=== PATIENT | male | born 1935 | race Caucasian/White ===

== ENCOUNTER 2020-09-18 20:57 | Inpatient (IN) | payer MEDICARE, OTHER ==
[~2020-09-18] VITALS: Ht 162.6 cm; Wt 82.1 kg
[2020-09-18] MEDS ORDERED: ONDANSETRON HCL/PF 4 MG/2 ML VIAL ONE (21:10)
[2020-09-18 21:27] LABS: BASOPHILS % (AUTO) 0.4 % (0.0-2.0); EOSINOPHILS % (AUTO) 0.3 % (0.0-6.0); HEMATOCRIT 41 % (39-51); HEMOGLOBIN 13.5 g/dL (13.5-17.5); LYMPHOCYTES # (AUTO) 0.2 K/uL (0.8-4.8); LYMPHOCYTES % (AUTO) 7.1 % (20.0-44.0); MEAN CORPUSCULAR HGB CONC 33 g/dl (31.0-36.0); MEAN CORPUSCULAR VOLUME 95 fL (80-96); MONOCYTES % (AUTO) 0.8 % (2.0-12.0); NEUTROPHILS # (AUTO) 2.5 K/uL (1.8-8.9); NEUTROPHILS % (AUTO) 91.4 % (43.0-81.0); PLATELET COUNT (AUTO) 206 K/uL (150-450); RED BLOOD CELL COUNT(AUTO) 4.25 MIL/uL (4.5-6.0); WHITE BLOOD COUNT (AUTO) 2.7 K/uL (4.3-11.0)
[2020-09-18] MEDS ORDERED: ONDANSETRON HCL/PF 4 MG/2 ML VIAL IVP ONE (21:30)
[2020-09-18 21:42] LABS: ALBUMIN 4.1 g/dL (3.4-5.0); BILIRUBIN,DIRECT 0.2 mg/dL (0.0-0.2); CALCIUM, SERUM 9.2 mg/dL (8.5-10.1); CARBON DIOXIDE 22 mmol/L (21-32); CHLORIDE 102 mmol/L (98-107); CREATININE 1.7 mg/dL (0.6-1.3); GLUCOSE 119 mg/dL (74-106); LIPASE 94 U/L (73-393); SODIUM SERUM 142 mmol/L (136-145); UREA NITROGEN, BLOOD 40 mg/dL (7-18)
--- NOTE | 2020-09-18 21:49 | NUR ---
F/C INSERTED Fr 16. DRAK YELLOW URINE, OUTPUT 500CC.
[2020-09-18 21:56] LABS: ALANINE AMINOTRANSFERASE 31 U/L (12-78); ALKALINE PHOSPHATASE 117 U/L (46-116); ASPARTATE AMINOTRANSFERASE 29 U/L (15-37); BILIRUBIN,TOTAL 0.7 mg/dL (0.2-1.0)
--- NOTE | 2020-09-18 22:04 | NUR ---
PATIENT TAKEN TO CT
--- NOTE | 2020-09-18 22:24 | NUR ---
COVID SWAB COLLECTED AND SENT TO LAB
[2020-09-18 23:06] LABS: BAND % (MANUAL) 12 % (0.0-5.0); BASOPHILS % (MANUAL) 0 % (0.0-2.0); EOSINOPHILS % (MANUAL) 0 % (0-4); LYMPHOCYTES % (MANUAL) 6 % (16-48); MONOCYTES % (MANUAL) 10 % (0-11.0); NEUTROPHILS % (MANUAL) 72 (42-76)
[2020-09-18 23:08] LABS: BILIRUBIN,URINE Negative (NEGATIVE); COLOR,URINE YELLOW (YELLOW); LEUKOCYTE ESTERASE ,URINE Small (NEGATIVE); NITRITE, URINE Negative (NEGATIVE); PH,URINE 5.5 (5.0-8.0); PROTEIN,URINE Negative (NEGATIVE); UGLUCOSE Negative (NEGATIVE); UROBILINOGEN,URINE 0.2 EU/dL (0.2)
[2020-09-18 23:09] LABS: BACTERIA,URINE 1+ /HPF (None Seen); SQUAMOUS EPITHELIAL CELL,UR Few /HPF (None Seen)
[2020-09-18] MEDS ORDERED: IV NS 0.9% 1,000 ML BAG IV ONE (23:30)
[2020-09-18] MEDS ORDERED: CEFTRIAXONE 1GM BAG (ER ONLY) 1 GM/50 ML PIGGYBACK IV ONE (23:30)
[2020-09-18] MEDS ORDERED: CEFTRIAXONE 1GM BAG (ER ONLY) 50 ML IV ONE (23:30)
[2020-09-19] MEDS ORDERED: ONDANSETRON HCL/PF 4 MG/2 ML VIAL IVP PRN
[2020-09-19] MEDS ORDERED: MAG HYDROX/AL HYDROX/SIMETH 30 ML UDC PO PRN
[2020-09-19] MEDS ORDERED: Z GUARD REMEDY 2 OZ OINT TP PRN
[2020-09-19] MEDS ORDERED: MAGNESIUM HYDROXIDE 30 ML UDC PO PRN
[2020-09-19] MEDS ORDERED: HYDROCODONE/APAP 5/325MG TABLET PO PRN
[2020-09-19] MEDS ORDERED: BISACODYL SUPP (10 MG) 10 MG/SUPP.RECT SUPP.RECT RC PRN (00:30)
--- NOTE | 2020-09-19 00:56 | NUR ---
REPORT GIVEN TO EZRA MILLER.
[2020-09-19 01:01] VITALS: BP 120/53
--- NOTE | 2020-09-19 01:07 | NUR ---
PATIENT TRANSFERRED UNDER ACLS.
--- NOTE | 2020-09-19 01:09 | NUR ---
newspaper photo editor Admitting Notes Patient arrived to the unit via gurney at approximately 0100 accompanied by Nurse Brito. Patient required 3 person assistance to walk from a gurney to his bed. Patient has an impaired gait. Patient was oriented to the staff and his room. Patient's alert and oriented x3. Patient's on room air with no respiratory distress noted. Patient's connected to a tele monitor with no cardiac distress noted. Patient has an IV access on his RAC gauge#20, which is intact and patient. Safety measures in place: Bed locked, bed alarm on, side rails upx3, and call light within reach. Will continue to monitor the patient.
[2020-09-19] MEDS: DOCUSATE SODIUM 250 MG CAPSULE PO SCH ×3 (01:24→17:00)
[2020-09-19 04:00] VITALS: BP 94/56
[2020-09-19 06:51] LABS: BASOPHILS % (AUTO) 0.1 % (0.0-2.0); HEMATOCRIT 35 % (39-51); HEMOGLOBIN 11.7 g/dL (13.5-17.5); LYMPHOCYTES # (AUTO) 0.2 K/uL (0.8-4.8); MEAN CORPUSCULAR HGB CONC 34 g/dl (31.0-36.0); MEAN CORPUSCULAR VOLUME 95 fL (80-96); MONOCYTES # (AUTO) 0.7 K/uL (0.1-1.30); MONOCYTES % (AUTO) 3.6 % (2.0-12.0); NEUTROPHILS # (AUTO) 17.3 K/uL (1.8-8.9); NEUTROPHILS % (AUTO) 95.3 % (43.0-81.0); PLATELET COUNT (AUTO) 128 K/uL (150-450); RED BLOOD CELL COUNT(AUTO) 3.63 MIL/uL (4.5-6.0); WHITE BLOOD COUNT (AUTO) 18.2 K/uL (4.3-11.0)
[2020-09-19] MEDS: IV NS 0.9% 1,000 ML IV PRN (07:14)
[2020-09-19 07:22] LABS: CALCIUM, SERUM 8.4 mg/dL (8.5-10.1); CARBON DIOXIDE 22 mmol/L (21-32); CHLORIDE 108 mmol/L (98-107); CREATININE 2.2 mg/dL (0.6-1.3); GLUCOSE 139 mg/dL (74-106); MAGNESIUM 2.1 mg/dL (1.8-2.4); PHOSPHORUS 3.3 mg/dL (2.5-4.9); POTASSIUM 4.1 mmol/L (3.5-5.1); SODIUM SERUM 142 mmol/L (136-145); UREA NITROGEN, BLOOD 52 mg/dL (7-18)
[2020-09-19 07:30] LABS: CHOLESTEROL 104 mg/dL (<200); HDL CHOLESTEROL 40 mg/dL (40-60); LDL 47 mg/dL (0-99); THYROID STIMULATING HORMONE 1.669 uIU/mL (0.358-3.74); TRIGLYCERIDES 76 mg/dL (30-150)
--- NOTE | 2020-09-19 07:50 | NUR ---
TELE/RN OPENING NOTES RECEIVED PATIENT IN BED, ALERT AND ORIENTED X1, ABLE TO MAKE NEEDS KNOWN. STABLE ON ROOM AIR. NO SOB, NO DISTRESS NOTED AT THIS TIME. ON TELEMONITOR WITH A READING OF SR 60. IV ACCESS ON RIGHT AC #20G IS INTACT AND PATENT ON SALINE LOCK. SAFETY PRECAUTIONS IN PLACED. BED LOCKED ON LOWEST POSITION, SIDE RAILS UPX2, CALL LIGHT WITHIN REACH. WILL CONTINUE TO MONITOR PATIENT.
[2020-09-19] MEDS: PANTOPRAZOLE 40 MG TABLET.DR PO SCH (08:29)
[2020-09-19] MEDS ORDERED: FEBU40TA3 PO (08:37)
[2020-09-19] MEDS ORDERED: PITA4TAB PO (08:37)
[2020-09-19] MEDS ORDERED: ISOS60TA72 PO (08:37)
[2020-09-19] MEDS ORDERED: TERA5CAP7 PO (08:37)
[2020-09-19] MEDS ORDERED: LINA290C PO (08:37)
[2020-09-19] MEDS ORDERED: SOLI10TA7 PO (08:37)
[2020-09-19] MEDS ORDERED: AZIL40TA PO (08:37)
[2020-09-19] MEDS: CEPHALEXIN MONOHYDRATE 500 MG CAPSULE PO SCH ×2 (10:02→17:57)
[2020-09-19] MEDS: TAMSULOSIN 0.4 MG CAP.SR.24H PO SCH (10:02)
[2020-09-19 11:27] VITALS: BP 109/61
[2020-09-19] MEDS ORDERED: CHOL200010 PO (13:12)
[2020-09-19] MEDS ORDERED: SOLI5TAB2 PO (13:12)
[2020-09-19] MEDS ORDERED: ASPI-1169 PO (13:12)
[2020-09-19] MEDS ORDERED: MAGN400T52 PO (13:12)
[2020-09-19 16:10] VITALS: BP 122/79
--- NOTE | 2020-09-19 18:42 | NUR ---
TELE/RN NOTES- IV ACCESS PATIENT ACCIDENTALLY PULLED OUT HIS IV ACCESS ON RIGHT AC WHEN PATIENT STOOD UP TO GO TO THE COMMODE. RN WRAPPED RIGHT AC WITH KERLIX AND SECURED WITH TAPE. WILL ATTEMPT TO ACCESS ANOTHER IV LINE.
--- NOTE | 2020-09-19 19:35 | NUR ---
RN NOTES RECEIVED PATIENT AWAKE ON HIS BED, A/OX 2, PORTUGUESE SPEAKING, SR WITH BBB ON TELE MONITOR HR-62, NOTICED HEMATURIA ON HIS F/C -MD IS AWARE, NO IV ACCESS, WILL TRY PUT A NEW ONE, CALL LIGHT WITHIN REACH, SIDERAILSUPX2, WILL CONTINUE TO MONITOR
--- NOTE | 2020-09-19 19:58 | NUR ---
TELE/RN CLOSING NOTES PATIENT IN BED, ALERT AND ORIENTED X1, ABLE TO MAKE NEEDS KNOWN. STABLE ON ROOM AIR. NO SOB, NO DISTRESS NOTED AT THIS TIME. ON TELEMONITOR WITH A READING OF SR 65 WITH BBB. IV ACCESS WAS PULLED OUT WHEN PATIENT WENT TO THE COMMODE. SAFETY PRECAUTIONS IN PLACED. BED LOCKED ON LOWEST POSITION, SIDE RAILS UPX2, CALL LIGHT WITHIN REACH. WILL ENDORSE TO THE NEXT SHIFT FOR KEYSHA.
[2020-09-19 20:00] VITALS: BP 98/59
[2020-09-19] MEDS: ACETAMINOPHEN 325 MG TABLET PO PRN (20:01)
--- NOTE | 2020-09-19 20:07 | NUR ---
RN NOTES COMPLAINED OF PAIN ON HIS ABDOMEN, PER PATIENT'S SON HE CAN ONLY HAVE TYLENOL, TYLENOL 650MG PO GIVEN ORDERED
[2020-09-19] MEDS ORDERED: MEROPENEM 500 MG in IV NS 0.9% 50 ML IV ONE (22:00)
--- NOTE | 2020-09-19 23:00 | NUR ---
RN NOTES WINSTON CHARGE NURSE CAME UP AND INSERTED A NEW IV ACCESS ON THE LEFT HAND GAUGE 22
[2020-09-19] MEDS ORDERED: MEROPENEM 500 MG VIAL IV ONE (23:10)
[2020-09-20] VITALS: BP 116/74
[2020-09-20 04:00] VITALS: BP 110/49
--- NOTE | 2020-09-20 06:00 | NUR ---
RN NOTES IRRIGATE PATIENT'S STEVENSON CATHETER NO CLOTS WAS REMOVED, PT DENIES PAIN, SYMPHYSIS PUBIS WAS SOFT TO TOUCH
--- NOTE | 2020-09-20 06:58 | NUR ---
RN NOTES SLEEPING BUT AROUSABLE, NOT IN DISTRESS, DENIES PAIN, MORNING CARE RENDERED, CALL LIGHT WITHIN REACH, SALOUPX2, PT. NEEDS ATTENDED
--- NOTE | 2020-09-20 07:46 | NUR ---
TELE/RN OPENING NOTES RECEIVED PATIENT IN BED, ALERT AND ORIENTED X2, ABLE TO MAKE NEEDS KNOWN. STABLE ON ROOM AIR. NO SOB, NO DISTRESS NOTED AT THIS TIME. ON TELEMONITOR WITH A READING OF SR WITH BBB. IV ACCESS ON LEFT HAND #22G IS INTACT AND PATENT WITH A RUNNING IV NS @75ML/HR. SAFETY PRECAUTIONS IN PLACED. BED LOCKED ON LOWEST POSITION, SIDE RAILS UPX2, CALL LIGHT WITHIN REACH. WILL CONTINUE TO MONITOR PATIENT.
[2020-09-20 08:00] VITALS: BP 93/54
[2020-09-20 08:20] LABS: BASOPHILS % (AUTO) 0.1 % (0.0-2.0); EOSINOPHILS % (AUTO) 0.1 % (0.0-6.0); HEMATOCRIT 32 % (39-51); HEMOGLOBIN 10.7 g/dL (13.5-17.5); LYMPHOCYTES # (AUTO) 0.8 K/uL (0.8-4.8); LYMPHOCYTES % (AUTO) 3.1 % (20.0-44.0); MEAN CORPUSCULAR HGB CONC 34 g/dl (31.0-36.0); MEAN CORPUSCULAR VOLUME 96 fL (80-96); MONOCYTES # (AUTO) 1.3 K/uL (0.1-1.30); MONOCYTES % (AUTO) 5.3 % (2.0-12.0); NEUTROPHILS # (AUTO) 22.6 K/uL (1.8-8.9); NEUTROPHILS % (AUTO) 91.4 % (43.0-81.0); PLATELET COUNT (AUTO) 122 K/uL (150-450); RED BLOOD CELL COUNT(AUTO) 3.33 MIL/uL (4.5-6.0); WHITE BLOOD COUNT (AUTO) 24.7 K/uL (4.3-11.0)
[2020-09-20] MEDS: DOCUSATE SODIUM 250 MG CAPSULE PO SCH ×2 (09:00→17:00)
[2020-09-20] MEDS: TAMSULOSIN 0.4 MG CAP.SR.24H PO SCH (09:22)
[2020-09-20] MEDS: PANTOPRAZOLE 40 MG TABLET.DR PO SCH (09:22)
[2020-09-20] MEDS: MEROPENEM 500 MG in IV NS 0.9% 50 ML IV SCH ×2 (10:03→20:50)
[2020-09-20 10:14] LABS: CREATINE KINASE, TOTAL 100 U/L (39-308)
[2020-09-20 10:35] LABS: ALANINE AMINOTRANSFERASE 22 U/L (12-78); ALBUMIN 2.6 g/dL (3.4-5.0); ALKALINE PHOSPHATASE 82 U/L (46-116); ASPARTATE AMINOTRANSFERASE 27 U/L (15-37); BILIRUBIN,TOTAL 0.5 mg/dL (0.2-1.0); CARBON DIOXIDE 23 mmol/L (21-32); CHLORIDE 106 mmol/L (98-107); CREATININE 2.1 mg/dL (0.6-1.3); GLUCOSE 121 mg/dL (74-106); MAGNESIUM 2.4 mg/dL (1.8-2.4); PHOSPHORUS 3.4 mg/dL (2.5-4.9); POTASSIUM 4.2 mmol/L (3.5-5.1); SODIUM SERUM 138 mmol/L (136-145); TOTAL PROTEIN, SERUM 5.8 g/dL (6.4-8.2); UREA NITROGEN, BLOOD 65 mg/dL (7-18)
--- NOTE | 2020-09-20 12:06 | NUR ---
TELE/RN NOTES PER DR. HIDALGO, HE WILL CONTACT A UROLOGIST TO INSERT A 3-WAY STEVENSON CATHETER FOR A CONTINUOUS BLADDER IRRIGATION. PER RN JUST NEEDS TO DO MANUAL IRRIGATION FOR NOW. CHARGE NURSE MADDIE NOTIFIED OF THE PLAN.
[2020-09-20] MEDS: ACETAMINOPHEN 325 MG TABLET PO PRN (14:15)
[2020-09-20 16:00] VITALS: BP 96/51
[2020-09-20] MEDS ORDERED: TRAMADOL HCL 50 MG TABLET PO PRN (17:30)
[2020-09-20] MEDS: IV NS 0.9% 1,000 ML IV PRN (19:08)
--- NOTE | 2020-09-20 19:39 | NUR ---
TELE/RN CLOSING NOTES PATIENT IN BED, ALERT AND ORIENTED X3, ABLE TO MAKE NEEDS KNOWN. STABLE ON ROOM AIR. NO SOB, NO DISTRESS NOTED AT THIS TIME. ON TELEMONITOR WITH A READING OF SR 70'S WITH BBB. IV ACCESS ON LEFT HAND #22G IS INTACT AND PATENT WITH A RUNNING IV NS @75ML/HR. SAFETY PRECAUTIONS IN PLACED. BED LOCKED ON LOWEST POSITION, SIDE RAILS UPX2, CALL LIGHT WITHIN REACH. WILL ENDORSE TO THE NEXT SHIFT FOR KEYSHA.
[2020-09-20 20:00] VITALS: BP 103/48
[2020-09-20 20:29] LABS: HEMOGLOBIN 10.9 g/dL (13.5-17.5)
[2020-09-21] VITALS: BP 106/49
[2020-09-21 04:00] VITALS: BP 114/61
--- NOTE | 2020-09-21 06:10 | NUR ---
LEAD BURNER APPRENTICE NOTES AWAKE & RESPONSIVE. NOT IN ANY DISTRESS. NO SOB NOTED. DENIES ANY PAIN OR DISCOMFORT AT THIS TIME. ON TELE SB @ 57 WITH IVF INFUSING WELL. AM CARE DONE. MONITORED ACCORDINGLY. CALL LIGHT WITHIN REACH. BED IN LOWEST POSITION. SR UP X 3 WITH BED ALARM ON FOR SAFETY. WILL ENDORSE TO NEXT SHIFT.
[2020-09-21 06:23] LABS: BASOPHILS % (AUTO) 0.1 % (0.0-2.0); EOSINOPHILS % (AUTO) 0.5 % (0.0-6.0); HEMATOCRIT 34 % (39-51); HEMOGLOBIN 11.4 g/dL (13.5-17.5); LYMPHOCYTES % (AUTO) 3.6 % (20.0-44.0); MEAN CORPUSCULAR HGB CONC 34 g/dl (31.0-36.0); MEAN CORPUSCULAR VOLUME 95 fL (80-96); MONOCYTES # (AUTO) 1.1 K/uL (0.1-1.30); NEUTROPHILS # (AUTO) 25.3 K/uL (1.8-8.9); NEUTROPHILS % (AUTO) 91.8 % (43.0-81.0); PLATELET COUNT (AUTO) 147 K/uL (150-450); RED BLOOD CELL COUNT(AUTO) 3.59 MIL/uL (4.5-6.0); WHITE BLOOD COUNT (AUTO) 27.5 K/uL (4.3-11.0)
[2020-09-21 07:07] LABS: CALCIUM, SERUM 8.4 mg/dL (8.5-10.1); CARBON DIOXIDE 22 mmol/L (21-32); CHLORIDE 106 mmol/L (98-107); CREATININE 2.1 mg/dL (0.6-1.3); GLUCOSE 114 mg/dL (74-106); MAGNESIUM 2.4 mg/dL (1.8-2.4); PHOSPHORUS 2.8 mg/dL (2.5-4.9); POTASSIUM 4.3 mmol/L (3.5-5.1); SODIUM SERUM 140 mmol/L (136-145); UREA NITROGEN, BLOOD 71 mg/dL (7-18)
--- NOTE | 2020-09-21 07:38 | NUR ---
TELE/RN OPENING NOTES RECEIVED PATIENT IN BED AWAKE ALERT AND ORIENTED X 3. PATIENT IN ON ROOM AIR SATURATING WELL. PATIENT IN NO APPARENT RESPIRATORY DISTRESS NOTED. NO COMPLAINED OF PAIN NOTED AT THIS TIME. TELE MONITOR READING SINUS RHYTHM 61 BPM WITH PVC. WILL CONTINUE TO MONITOR.
[2020-09-21] MEDS: PANTOPRAZOLE 40 MG TABLET.DR PO SCH (07:59)
[2020-09-21] MEDS: DOCUSATE SODIUM 250 MG CAPSULE PO SCH ×2 (08:41→17:21)
[2020-09-21] MEDS: TAMSULOSIN 0.4 MG CAP.SR.24H PO SCH (08:42)
[2020-09-21] MEDS: MEROPENEM 500 MG in IV NS 0.9% 50 ML IV SCH ×2 (08:46→21:49)
[2020-09-21] MEDS: IV NS 0.9% 1,000 ML IV PRN (08:46)
[2020-09-21] MEDS ORDERED: DOCUSATE SODIUM 100 MG CAPSULE PO SCH (13:00)
[2020-09-21] MEDS: POLYETHYLENE GLYCOL 3350 17 GM POWD.PACK PO SCH (13:08)
--- NOTE | 2020-09-21 14:54 | NUR ---
RN NOTES DR. PALMA ORDER DISCONTINUE COLACE 100MG BID, NOTED AND CARRIED OUT.
[2020-09-21 18:00] VITALS: BP 146/60
--- NOTE | 2020-09-21 18:19 | NUR ---
RN NOTES FEBUXOSTAT 40MG DAILY DR. MONTOYA (SON) WAS NOTIFIED TO PROVIDE THIS MEDICATION, PER PHARMACY THEY DIDN'T CARRY THIS MEDICATION. DR. MONTOYA (SON) WILL CHECK IF HIS FATHER STILL TAKING THIS MEDICATION.
--- NOTE | 2020-09-21 19:00 | NUR ---
ARMOR RECONNAISSANCE SPECIALIST OPENING NOTE PT AWAKE IN BED AT THIS TIME. AOX2-3 , [place] SPEAKING, DIFFICULTY TRYING TO MAKE NEEDS KNOWN. PT ON MATERIALS ASSISTANT SR@83. NO SOB NOTED. NO C/O PAIN AT THIS TIME, NO S/O ANY ACUTE DISTRESS NOTED. RESPIRATIONS EVEN AND UNLABORED, STABLE ON RA. IV ACCESS LH G#18 INTACT, PATENT, FLUSHING WELL. STEVENSON CATHETER WITH HEMATURIA NOTED. SAFETY PRECAUTIONS IN PLACE AND MAINTAINED AT ALL TIMES. BED IN LOWEST LOCKED POSITION, HOB ELEVATED, SIDE RAILS UP X2, CALL LIGHT AND TABLE WITHIN REACH. FAMILY AT BEDSIDE. FAMILY AT BEDSIDE. WILL CONTINUE TO MONITOR
--- NOTE | 2020-09-21 19:27 | NUR ---
TELE/RN CLOSING NOTES PATIENT ALERT AND ORIENTED X3. PATIENT IN ON ROOM AIR SATURATION 96%. PATIENT IN NO APPARENT RESPIRATORY DISTRESS NOTED. NO COMPLAINED OF PAIN NOTED AT THIS TIME. TELE MONITOR READING SINUS RHYTHM 89 BPM WITH BBB AND TRIGEMINY. IV ACCESS AT LEFT HAND #22 G WITH IV FLUID OF NS 1L AT 75 ML/HR ON AND INFUSING WELL. SEEN AND EXAMINED BY MD WITH ORDERS MADE AND CARRIED OUT. ALL DUE MEDICATIONS WAS GIVEN. SAFETY PRECAUTIONS WAS IN PLACED. SIDE RAILS UP X2. CALL LIGHT WITHIN REACH. WILL ENDORSED TO MIXING PLANT OPERATOR FOR KEYSHA.
[2020-09-21 20:00] VITALS: BP 144/76
[2020-09-21 20:57] LABS: HEMOGLOBIN 10.9 g/dL (13.5-17.5)
[2020-09-22] VITALS: BP 131/61
[2020-09-22 04:00] VITALS: BP 131/50
--- NOTE | 2020-09-22 06:00 | NUR ---
PLANT SECURITY GUARD CLOSING NOTE PT IS IN BED WITH EYES CLOSED, EASY TO AROUSE. PT IS STABLE ON RA, NO SOB NOTED. NO S/S OF RESPIRATORY DISTRESS. PT IS BED REST. IV ACCESS IS INTACT, PATENT, AND FLUSHING WELL. STEVENSON CATHETER CARE PERFORMED. ALL NEEDS HAVE BEEN MET. ALL CARE, NEEDS, MEDICATIONS, AND TREATMENT ADMINISTERED ANTICIPATED PER ORDER. ENCOURAGED PT TO REPOSITION PT Q2H AND PRN. SAFETY, SEIZURE, AND ASPIRATION PRECAUTIONS MAINTAINED AT ALL TIMES. BED IN LOWEST LOCKED POSITION, HOB ELEVATED, SIDE RAILS UPX2. CALL LIGHT AND TABLE WITHIN REACH. WILL ENDORSE TO ONCOMING NURSE FOR KEYSHA.
[2020-09-22 06:28] LABS: BASOPHILS % (AUTO) 0.1 % (0.0-2.0); EOSINOPHILS % (AUTO) 0.8 % (0.0-6.0); HEMATOCRIT 32 % (39-51); HEMOGLOBIN 10.6 g/dL (13.5-17.5); LYMPHOCYTES # (AUTO) 1.2 K/uL (0.8-4.8); LYMPHOCYTES % (AUTO) 7.9 % (20.0-44.0); MEAN CORPUSCULAR HGB CONC 33 g/dl (31.0-36.0); MEAN CORPUSCULAR VOLUME 95 fL (80-96); MONOCYTES # (AUTO) 0.8 K/uL (0.1-1.30); NEUTROPHILS # (AUTO) 13.3 K/uL (1.8-8.9); NEUTROPHILS % (AUTO) 86.2 % (43.0-81.0); PLATELET COUNT (AUTO) 155 K/uL (150-450); RED BLOOD CELL COUNT(AUTO) 3.36 MIL/uL (4.5-6.0); WHITE BLOOD COUNT (AUTO) 15.4 K/uL (4.3-11.0)
[2020-09-22 06:47] LABS: CALCIUM, SERUM 8.4 mg/dL (8.5-10.1); CARBON DIOXIDE 26 mmol/L (21-32); CHLORIDE 107 mmol/L (98-107); GLUCOSE 103 mg/dL (74-106); POTASSIUM 4.1 mmol/L (3.5-5.1); SODIUM SERUM 139 mmol/L (136-145); UREA NITROGEN, BLOOD 71 mg/dL (7-18)
--- NOTE | 2020-09-22 07:55 | NUR ---
DREDGE MECHANIC OPENING NOTE PATIENT IS IN BED RESTING, PATIENT IS IN NO ACUTE DISTRESS. PATIENT IS ON TELE MONITOR READING SB 50s WITH PVCs. SAFETY PRECAUTIONS ARE ON, BED IS LOCKED IN THE LOWEST POSITION WITH SIDE RAILS UP, CALL LIGHT WITHIN REACH. WILL CONTINUE TO MONITOR CLOSELY.
[2020-09-22 08:07] LABS: *SPE ALBUMIN 2.7 g/dL (2.9-4.4); *SPE ALPHA-1-GLOBULIN 0.4 g/dL (0.0-0.4); *SPE ALPHA-2-GLOBULIN 0.8 g/dL (0.4-1.0); *SPE BETA GLOBULIN 0.6 g/dL (0.7-1.3); *SPE GLOBULIN, TOTAL 2.6 g/dL (2.2-3.9); *SPE M-SPIKE 0.2 g/dL (Not Observed); *SPEGAMMA GLOBULIN 0.8 g/dL (0.4-1.8)
[2020-09-22] MEDS: POLYETHYLENE GLYCOL 3350 17 GM POWD.PACK PO SCH (09:00)
[2020-09-22] MEDS ORDERED: LOSARTAN POTASSIUM 50 MG TABLET PO SCH (09:00)
[2020-09-22] MEDS ORDERED: Medication Not On Formulary EA (Febuxostat 40 MG) PO SCH (09:00)
[2020-09-22] MEDS ORDERED: Medication Not On Formulary EA (Magnesium Oxide 400 MG) PO SCH (09:00)
[2020-09-22] MEDS ORDERED: ISOSORBIDE MONONITRATE (30MG) 30 MG TAB.SR.24H PO SCH (09:00)
[2020-09-22] MEDS: MEROPENEM 500 MG in IV NS 0.9% 50 ML IV SCH (09:25)
[2020-09-22] MEDS: ATORVASTATIN 10 MG TABLET PO SCH (09:28)
[2020-09-22] MEDS: TERAZOSIN HCL 5 MG CAPSULE PO SCH (09:28)
[2020-09-22] MEDS: DOCUSATE SODIUM 250 MG CAPSULE PO SCH ×2 (09:28→17:44)
[2020-09-22] MEDS: CHOLECALCIFEROL 1,000 UNIT TABLET (VIT D3) PO SCH (09:29)
[2020-09-22] MEDS: ASPIRIN 81 MG TAB.CHEW PO SCH (09:29)
[2020-09-22] MEDS: OXYBUTYNIN CHLORIDE 5 MG TABLET PO SCH ×2 (09:29→17:44)
[2020-09-22] MEDS: PANTOPRAZOLE 40 MG TABLET.DR PO SCH (09:29)
[2020-09-22] MEDS: TAMSULOSIN 0.4 MG CAP.SR.24H PO SCH (09:29)
--- NOTE | 2020-09-22 09:30 | NUR ---
FITNESS INSTRUCTOR NOTE PATIENT HAD A LOOSE LIQUID STOOL, WITHHOLDING MIRALAX AT THIS TIME. PATIENT MOVED OUT OF BED AND PULLED ON THE STEVENSON CATHETER, RESULTING IN BLOODY URINE AND BLEEDING FROM THE URETHRA
--- NOTE | 2020-09-22 11:15 | NUR ---
WOUND CARE CONSULT: PT PRESENTS WITH LESION/WOUND TO LEFT THIGH, PRESENT ON ADMISSION, UNKNOWN ETIOLOGY. RECOMMEND SURGICAL CONSULT. DR MONICA MCDANIEL NOTIFIED OF CONSULT REQUEST. PT STATES HAS HAD THIS WOUND/LESION FOR ONE MONTH. RECOMMENDATIONS MADE FOR SKIN PROTECTION. DISCUSSED WITH NURSING STAFF. IN AGREEMENT WITH PLAN OF CARE. Addendum: 09/22/20 at 1117 by RAMONA DUNCAN WNDNU Amended: Links added.
[2020-09-22] MEDS: CEFTRIAXONE 1 G in IV D5W 50 ML IV SCH (12:11)
--- NOTE | 2020-09-22 18:48 | NUR ---
COUNTY EXTENSION AGENT CLOSING NOTE PATIENT IS IN BED RESTING, PATIENT IS IN NO ACUTE DISTRESS. PATIENT IS ON TELE MONITOR READING SB 50s WITH PVCs. SAFETY PRECAUTIONS ARE ON, BED IS LOCKED IN THE LOWEST POSITION WITH SIDE RAILS UP, CALL LIGHT WITHIN REACH. ENDORSE PATIENT TO SENIOR INTERACTIVE DEVELOPER NURSE FOR KEYSHA.
--- NOTE | 2020-09-22 19:57 | NUR ---
RESOURCE RECOVERY SPECIALIST OPENING NOTE RECEIVED PT AWAKE IN BED. A/O X3, SERBIAN-SPEAKING. PT IS STABLE ON ROOM AIR. NO SOB OR S/S OF RESPIRATORY DISTRESS NOTED. PT IS ON EXTERNAL MORTICIAN HELPER READING SB AT 54 BPM WITH PVCs. PT HAS NO C/O PAIN OR DISCOMFORT AT THIS TIME. IV ACCESS IN LEFT HAND #22 AND CHEKO MIDLINE, INTACT AND PATENT. STEVENSON CATH IN PLACE DRAINING GUIDO-COLORED URINE. SAFETY MEASURES MAINTAINED. BED IN LOWEST LOCKED POSITION, HOB ELEVATED, SIDE RAILS UP X2. CALL LIGHT AND TABLE WITHIN REACH. WILL CONTINUE WITH PLAN OF CARE.
[2020-09-22 20:00] VITALS: BP 131/64
[2020-09-23] VITALS: BP_SYST 122
[2020-09-23 04:00] VITALS: BP 146/44
--- NOTE | 2020-09-23 06:53 | NUR ---
SMASH PIECER CLOSING NOTE PT IS AWAKE IN BED. A/O X3, CONGOLESE-SPEAKING. PT IS STABLE ON ROOM AIR. NO SOB OR S/S OF RESPIRATORY DISTRESS NOTED. PT IS ON EXTERNAL PERFORATOR READING SB AT 63 BPM WITH PVCs. PT HAS NO C/O PAIN OR DISCOMFORT AT THIS TIME. IV ACCESS IS INTACT, PATENT, AND FLUSHING WELL. STEVENSON CATH IN PLACE DRAINING GUIDO-COLORED URINE WITH CLOTS. ALL NEEDS HAVE BEEN MET. SAFETY PRECAUTIONS MAINTAINED AT ALL TIMES. BED IN LOWEST LOCKED POSITION, HOB ELEVATED, SIDE RAILS UP X2. CALL LIGHT AND TABLE WITHIN REACH. WILL ENDORSE TO ONCOMING NURSE FOR KEYSHA.
[2020-09-23] MEDS: PANTOPRAZOLE 40 MG TABLET.DR PO SCH (07:30)
[2020-09-23 08:00] VITALS: BP 147/88
[2020-09-23] MEDS: TERAZOSIN HCL 5 MG CAPSULE PO SCH (09:00)
[2020-09-23] MEDS: TAMSULOSIN 0.4 MG CAP.SR.24H PO SCH (09:00)
[2020-09-23] MEDS: POLYETHYLENE GLYCOL 3350 17 GM POWD.PACK PO SCH (09:00)
[2020-09-23] MEDS: OXYBUTYNIN CHLORIDE 5 MG TABLET PO SCH (09:00)
[2020-09-23] MEDS: ATORVASTATIN 10 MG TABLET PO SCH (09:00)
[2020-09-23] MEDS: DOCUSATE SODIUM 250 MG CAPSULE PO SCH (09:00)
[2020-09-23] MEDS: ASPIRIN 81 MG TAB.CHEW PO SCH (09:00)
[2020-09-23] MEDS: CHOLECALCIFEROL 1,000 UNIT TABLET (VIT D3) PO SCH (09:00)
[2020-09-23] MEDS: CEFTRIAXONE 1 G in IV D5W 50 ML IV SCH (11:39)
--- NOTE | 2020-09-25 07:10 | NUR ---
MAINTENANCE SUPERVISOR OPENING NOTE RECEIVED PATIENT ON BED, ALERT AND ORIENTED X 4 SURINAMESE-SPEAKING ONLY. ABLE TO MAKE NEEDS KNOWN. PATIENT ON ROOM AIR WITH EQUAL AND UNLABORED BREATHING. WITH NO SIGNS OF RESPIRATORY DISTRESS. WITH LEFT UPPER ARM MIDLINE IV ACCESS ON SALINE LOCK, PATENT AND INTACT. WITH STEVENSON CATHETER TO URINE BAG WITH URINE WITH YELLOWISH OUTPUT. MAINTAINED ON MODERATE TO HIGH BACK REST. PER DITCHING MACHINE OPERATOR, PATIENT WAS ANXIOUS OF GOING HOME. CALL LIGHT WITHIN REACH AT ALL TIMES. SAFETY PRECAUTIONS MAINTAINED WITH BED LOCKED AND AT LOWEST POSITION. WILL CONTINUE TO MONITOR.
--- NOTE | 2020-09-25 09:45 | NUR ---
COMPUTER TESTER NOTE PATIENT REFUSED MEDICATIONS SAYING HE WILL BE GOING HOME. EXPLAINED REPERCUSSIONS OF ACTION AND IMPORTANCE OF MEDICATIONS. PATIENT WAS VERY DISMISSIVE AND SAID THAT WE JUST HAVE TO WAIT FOR HIS SON PUSHPA. I TRIED TO CALL HIS SON PUSHPA BUT WAS NOT ANSWERING AND VOICEMAIL IS FULL. MD NOTIFIED OF PATIENT'S REFUSAL INCLUDING VS CHECK. WILL CONTINUE TO MONITOR PATIENT.
--- NOTE | 2020-09-25 11:30 | NUR ---
HEALTH PHYSICIST NOTE PATIENT SEEN BY DR. OWENS WITH ERROL BARROW AT BEDSIDE WITH ORDER FOR DISCHARGE. 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 WILL GIVE IV ATB BEFORE DISCHARGE. PATIENT REFUSED BODY CHECK DESPITE EXPLANATIONS BUT SON SIGNED FOR ALL THE PAPER WORKS AND ATTACHED TO CHART. WILL CONTINUE TO MONITOR PATIENT.
--- NOTE | 2020-09-25 12:35 | NUR ---
INSPECTOR AND HAND PACKAGER NOTE PATIENT DISCHARGED WITH STEVENSON CATHETER ORDERED IN STABLE CONDITION. MIDLINE REMOVED AND COVERED WITH DRY DRESSING WITH NO SIGNS OF BLEEDING. PROCEDURE TOLERATED WELL. STILL REFUSED BODY CHECK. PATIENT ACCOMPANIED TO THE LOBBY BY FIELDWORK COORDINATOR ON A WHEELCHAIR, IN STABLE CONDITION.
== END 2020-09-23 12:30 | disposition home health service (06) | DRG 871 ==
LOC: ER 20:57 → TELE 09-19 00:43
PROVIDERS: ADMIT Registered Nurse; ATTEND Nurse Practitioner Acute Care
PROC: 05H633Z Insertion of Infusion Device into Left Subclavian Vein, Percutaneous Approach (ICD-10-PCS; principal; 2020-09-19)
PROC: B547ZZA Ultrasonography of Left Subclavian Vein, Guidance (ICD-10-PCS; 2020-09-19)
DX: A41.9 Sepsis, unspecified organism (principal); N17.0 Acute kidney failure with tubular necrosis; G92 Toxic encephalopathy; E87.2 Acidosis; Z20.822 Contact with and (suspected) exposure to COVID-19; N18.9 Chronic kidney disease, unspecified; D63.8 Anemia in other chronic diseases classified elsewhere; B96.20 Unspecified Escherichia coli [E. coli] as the cause of diseases classified elsewhere; D69.6 Thrombocytopenia, unspecified; F03.90 Unspecified dementia, unspecified severity, without behavioral disturbance, psychotic disturbance, mood disturbance, and anxiety; K59.00 Constipation, unspecified; N30.21 Other chronic cystitis with hematuria; R65.20 Severe sepsis without septic shock; N28.1 Cyst of kidney, acquired; N40.1 Benign prostatic hyperplasia with lower urinary tract symptoms; L98.8 Other specified disorders of the skin and subcutaneous tissue
CPT/HCPCS: 36415; 71045-TC; 74018; 76770-TC; 80048-TC; 80053-TC; 80061-TC; 80076-TC; 81001; 82140-TC; 82550-TC; 83605-TC; 83690-TC; 83735-TC; 83970; 84100-TC; 84155; 84165; 84443-TC; 84484-TC; 85025-TC; 85027-TC; 87040-TC; 87081-TC; 87086-TC; 87186-TC; 97116-TC; 97530-TC; A4217; C9803; G0378; J0696; J2185; J2405; J7030; J7060

== ENCOUNTER 2024-05-28 03:40 | Inpatient (IN) | payer MEDICARE, OTHER ==
[~2024-05-28] VITALS: Ht 165.1 cm; Wt 65.8 kg
[~2024-05-28 03:40] MED LIST: ASPI-1169 PO; AZIL40TA PO; CHOL200010 PO; FEBU40TA3 PO; ISOS60TA72 PO; MAGN400T52 PO; PITA4TAB PO; SOLI5TAB2 PO; TERA5CAP7 PO
[2024-05-28] MEDS ORDERED: METO25TA4 PO (04:40)
[2024-05-28] MEDS ORDERED: FERR325T28 PO (04:40)
[2024-05-28] MEDS ORDERED: PANT40TA49 PO (04:40)
[2024-05-28] MEDS ORDERED: FURO20TA4 PO (04:40)
[2024-05-28] MEDS ORDERED: SACU1TAB7 PO (04:40)
[2024-05-28 04:50] LABS: BASOPHILS # (AUTO) 0.1 K/uL (0.0-0.2); BASOPHILS % (AUTO) 0.6 % (0.0-2.0); EOSINOPHILS # (AUTO) 0.2 K/uL (0.0-0.7); HEMATOCRIT 35 % (39-51); HEMOGLOBIN 11.6 g/dL (13.5-17.5); LYMPHOCYTES # (AUTO) 1.9 K/uL (0.8-4.8); MEAN CORPUSCULAR HEMOGLOBIN 29 PG (26.0-33.0); MEAN CORPUSCULAR HGB CONC 33 g/dl (31.0-36.0); MEAN CORPUSCULAR VOLUME 89 fL (80-96); MONOCYTES # (AUTO) 1.3 K/uL (0.1-1.30); MONOCYTES % (AUTO) 11.1 % (2.0-12.0); NEUTROPHILS # (AUTO) 8.5 K/uL (1.8-8.9); NEUTROPHILS % (AUTO) 70.3 % (43.0-81.0); PLATELET COUNT (AUTO) 459 K/uL (150-450); RED BLOOD CELL COUNT(AUTO) 3.99 MIL/uL (4.5-6.0); RED CELL DISTRIBUTION WIDTH 16.3 % (11.5-15.0); WHITE BLOOD COUNT (AUTO) 12.1 K/uL (4.3-11.0)
[2024-05-28 05:12] LABS: CALCIUM, SERUM 8.5 mg/dL (8.5-10.1); CARBON DIOXIDE 25 mmol/L (21-32); CHLORIDE 103 mmol/L (98-107); GLUCOSE 107 mg/dL (74-106); POTASSIUM 4.6 mmol/L (3.5-5.1); SODIUM SERUM 137 mmol/L (136-145); UREA NITROGEN, BLOOD 19 mg/dL (7-18)
[2024-05-28 05:17] LABS: ALANINE AMINOTRANSFERASE 70 U/L (12-78); ALBUMIN 1.8 g/dL (3.4-5.0); ALKALINE PHOSPHATASE 93 U/L (46-116); ASPARTATE AMINOTRANSFERASE 27 U/L (15-37); BILIRUBIN,DIRECT 0.1 mg/dL (0.0-0.2); BILIRUBIN,TOTAL 0.6 mg/dL (0.2-1.0); TOTAL PROTEIN, SERUM 6.1 g/dL (6.4-8.2)
[2024-05-28 05:24] LABS: APPEARANCE,URINE CLEAR (CLEAR); BILIRUBIN,URINE NEGATIVE (NEGATIVE); COLOR,URINE YELLOW (YELLOW); KETONES,URINE NEGATIVE (NEGATIVE); LEUKOCYTE ESTERASE ,URINE 2+ (NEGATIVE); NITRITE, URINE NEGATIVE (NEGATIVE); PROTEIN,URINE NEGATIVE (NEGATIVE); UGLUCOSE NEGATIVE (NEGATIVE)
[2024-05-28 05:25] LABS: INR 1.08 (0.91-1.10); PARTIAL THROMBOPLASTIN TIME 37.4 SEC (24.3-34.3); PROTHROMBIN TIME 11.4 SECS (9.2-11.1)
[2024-05-28] MEDS ORDERED: CEFTRIAXONE 1GM BAG (ER ONLY) 50 ML IV ONE (05:46)
[2024-05-28] MEDS: CEFTRIAXONE 1GM BAG (ER ONLY) 1 GM/50 ML PIGGYBACK IV ONE (05:47)
[2024-05-28] MEDS ORDERED: AMOX-430 PO (06:21)
[2024-05-28 06:25] LABS: BLOOD, URINE TRACE Ery/uL (NEGATIVE)
[2024-05-28 06:27] LABS: ADD URINE CULTURE YES; BACTERIA,URINE 2+ /HPF (None Seen); SQUAMOUS EPITHELIAL CELL,UR 0-2 /HPF (None Seen)
[2024-05-28 08:56] LABS: LACTIC ACID 1.7 mmol/L (0.4-2.0)
[2024-05-28 08:59] VITALS: BP 120/63; TEMP 98.8; O2SAT 99
== END 2024-05-28 08:35 | disposition left against medical advice (07) | DRG 189 ==
LOC: ER 03:41 → TELE-TD 04:18
PROVIDERS: ADMIT Internal Medicine; ATTEND Internal Medicine
DX: J96.01 Acute respiratory failure with hypoxia (principal); I11.0 Hypertensive heart disease with heart failure; I50.9 Heart failure, unspecified; Z79.82 Long term (current) use of aspirin; F03.90 Unspecified dementia, unspecified severity, without behavioral disturbance, psychotic disturbance, mood disturbance, and anxiety; N39.0 Urinary tract infection, site not specified
CPT/HCPCS: 31720; 36415; 71045-TC; 80048-TC; 80076-TC; 81001; 83605-TC; 84484-TC; 85025-TC; 85730-TC; 87040-TC; 87086-TC; G0378; J0696